=== PATIENT | female | born 2000 | race Two or more races ===

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

== ENCOUNTER → 2023-01-31 | Emergency (ER) | payer BC ==
[~2023-01-31] VITALS: Ht 167.6 cm; Wt 54.4 kg
[~2023-01-31] MED LIST: CYANOCOBALAMIN 1000 MCG/ML VIAL IM ONE; CYANOCOBALAMIN 1000 MCG/ML VIAL ONE
[2023-01-31 18:14] LABS: HEMATOCRIT 33.2 % (31.2-41.9); MEAN CORPUSCULAR HEMOGLOBIN 35.6 uug (24.7-32.8); MEAN CORPUSCULAR VOLUME 105.9 fL (75.5-95.3); PLATELET COUNT (AUTO) 342 K/uL (179-408)
[2023-01-31 18:17] LABS: *BILIRUBIN,URIN NEGATIVE (NEGATIVE); *BLOOD, URINE NEGATIVE (NEGATIVE); *CLARITY,URINE CLEAR (CLEAR); *COLOR,URINE YELLOW (YELLOW); *KETONES,URINE NEGATIVE (NEGATIVE); LEUKOCYTE ESTERASE ,URINE NEGATIVE (NEGATIVE); NITRITE, URINE NEGATIVE (NEGATIVE); PH,URINE 7.5 (5.0-8.0); UGLUCOSE NEGATIVE (NEGATIVE)
[2023-01-31 18:22] LABS: *URINE HCG, QUAL NEG (NEGATIVE)
[2023-01-31 18:27] LABS: CREATININE 0.7 mg/dL (0.6-1.3); POTASSIUM 3.7 mmol/L (3.5-5.1)
[2023-01-31 18:32] LABS: *AMPHETAMINE, URINE NEGATIVE (NEGATIVE); *CANNABINOID, URINE POSITIVE (NEGATIVE); *COCCAINE, URINE NEGATIVE (NEGATIVE); *PHENCYCLIDINE SCREEN,URINE NEGATIVE (NEGATIVE)
[2023-01-31 18:56] LABS: BILIRUBIN,TOTAL 0.3 mg/dL (0.2-1.0); TOTAL PROTEIN, SERUM 7.8 g/dL (6.4-8.2)
--- NOTE | 2023-01-31 19:15 | NUR ---
Received patient from day shift RN. Patient aox4, unsteady gait due to tingling to upper and lower extremities requiring standby assist. Patient resting comfortably in bed, no signs of distress noted. Patient requesting food.
--- NOTE | 2023-01-31 19:20 | NUR ---
Patient has been admitted by Jeaneth CHÁVEZ.
--- NOTE | 2023-01-31 19:46 | NUR ---
Patient given turkey sandwhich and apple juice.
--- NOTE | 2023-01-31 20:25 | NUR ---
Report given to Ren GALLARDO
--- NOTE | 2023-01-31 20:45 | NUR ---
Patient stating she does not want to be admitted unless her mother stays overnight. Per third floor [facility], currently not allowing overnight visitors due to COVID policy. Educated patient on the importance of staying for hospital admission. Patient stating "I just want to go home now". Dr. Barnett notified.
--- NOTE | 2023-01-31 20:49 | NUR ---
Patient does not wish to proceed with medical care recommended by Dr. Barnett. Patient given information related to possible complications, up to and including , which could occur as a result of leaving the hospital at this time. Patient verbalizes understanding of risks involved due to leaving against medical advice. Patient has signed AMA form.
[2023-01-31 21:05] VITALS: BP 120/88
== END | disposition home or self-care (01) ==
LOC: ER 17:08 → UNDOADMIN 20:26 → MEDSURG3 20:26
DX: R27.0 Ataxia, unspecified (principal); Z20.822 Contact with and (suspected) exposure to COVID-19
CPT/HCPCS: 99285; 70450; 87426; 86592; 80053; 82607; 87806; 84703; 85025; 84484; 96372; 83921; 80307; 82747; 85014; 81003; J3420; 36415; A4663

== ENCOUNTER 2023-06-20 21:41 | Emergency (ER) | payer BC ==
[~2023-06-20] VITALS: Ht 170.2 cm; Wt 54.4 kg
[2023-06-20 21:43] VITALS: O2SAT 100
== END 2023-06-20 23:03 | disposition home or self-care (01) ==
LOC: ER 21:42
DX: R25.3 Fasciculation (principal)
CPT/HCPCS: A4606; A4663

== ENCOUNTER 2024-01-01 00:10 | Emergency (ER) | payer BC ==
[~2024-01-01] VITALS: Ht 167.6 cm; Wt 59.0 kg
[2024-01-01] MEDS ORDERED: BACL5TAB PO (01:06)
[2024-01-01] MEDS ORDERED: BACLOFEN 10 MG TABLET ONE (01:10)
[2024-01-01 01:40] VITALS: BP 116/62; TEMP 98.2; O2SAT 97
== END 2024-01-01 01:41 | disposition home or self-care (01) ==
LOC: ER 00:14
DX: G24.5 Blepharospasm (principal); G24.9 Dystonia, unspecified; Z79.899 Other long term (current) drug therapy
CPT/HCPCS: A4606; A4663

== ENCOUNTER 2025-06-19 17:11 | Emergency (ER) | payer BC ==
[~2025-06-19] VITALS: Ht 167.6 cm; Wt 59.0 kg
[~2025-06-19 17:11] MED LIST changes: +BACL5TAB PO; -CYANOCOBALAMIN 1000 MCG/ML VIAL IM ONE; -CYANOCOBALAMIN 1000 MCG/ML VIAL ONE
[2025-06-19 17:21] VITALS: BP 104/66
[2025-06-19] MEDS ORDERED: ACETAMINOPHEN 325 MG TABLET ONE (19:06)
[2025-06-19] MEDS ORDERED: IBUPROFEN 400 MG TABLET ONE (19:07)
[2025-06-19] MEDS: ACETAMINOPHEN 325 MG TABLET PO ONE (19:10)
[2025-06-19] MEDS: IBUPROFEN 400 MG TABLET PO ONE (19:10)
[2025-06-19 19:12] VITALS: BP 108/68; TEMP 98; O2SAT 98
== END 2025-06-19 19:14 | disposition home or self-care (01) ==
LOC: ER 17:40
DX: M23.91 Unspecified internal derangement of right knee (principal); Z79.899 Other long term (current) drug therapy; Z88.7 Allergy status to serum and vaccine
CPT/HCPCS: 73560; A4606; A4663